=== PATIENT | female | born 1930 | race Caucasian/White ===

== ENCOUNTER 2021-05-03 08:09 | Emergency (ER) | payer OTHER ==
[~2021-05-03] VITALS: Ht 152.4 cm; Wt 70.3 kg
[2021-05-03 09:46] LABS: URINE BILIRUBIN NEGATIVE (Negative); URINE BLOOD NEGATIVE (Negative); URINE CLARITY CLEAR; URINE COLOR YELLOW; URINE GLUCOSE-RANDOM* NEGATIVE (Negative); URINE KETONES NEGATIVE (Negative); URINE NITRITE-REFLEX NEGATIVE (Negative); URINE PROTEIN (DIPSTICK) NEGATIVE (Negative); URINE SPECIFIC GRAVITY 1.025 (1.005-1.035); URINE UROBILINOGEN 0.2 E.U./dl (0.2-1.0)
[2021-05-03 09:47] LABS: ABSOLUTE NEUTROPHILS 9.9 thou/uL (1.4-8.2); BASOPHILS 0.7 % (0.0-2.0); EOSINOPHILS 1.6 % (0.0-3.0); HEMATOCRIT 40.5 % (37.0-47.0); HEMOGLOBIN 13.2 gm/dL (12.0-15.0); LYMPHOCYTES 23.3 % (24.0-44.0); MCH 30.2 pg (26.0-34.0); MCHC 32.7 g/dL (28.0-37.0); MCV 92.5 fL (80.0-100.0); MONOCYTES 7.9 % (1.0-8.0); PLATELET COUNT 357 thou/uL (150-400); POLYS 66.5 % (36.0-66.0); RBC 4.38 mil/uL (4.20-5.00); RDW 13.8 % (10.5-14.5); WBC 14.9 thou/uL (4.0-11.0)
[2021-05-03 09:48] LABS: URINE LEUKOCYTES-REFLEX 2+ (Negative)
[2021-05-03 10:02] LABS: CALCIUM 9.7 mg/dL (8.5-10.1); CREATININE 0.9 mg/dL (0.6-1.0); POTASSIUM 4.8 mmol/L (3.5-5.1)
[2021-05-03 10:15] LABS: SQUAMOUS >10 Many /LPF (0-3)
[2021-05-03 10:16] LABS: AMORPHOUS URATES Few /LPF (None Seen); CASTS None Seen /LPF (None Seen); URINE RBC 1-2 Rare /HPF (NONE SEEN)
[2021-05-03 14:55] VITALS: BP 146/71
[2021-05-03] MEDS ORDERED: ASA81BEC PO (16:00)
[2021-05-03] MEDS ORDERED: CALCIUM500 MG PO (16:01)
[2021-05-03] MEDS ORDERED: CRANBERRY500 M3 PO (16:01)
[2021-05-03] MEDS ORDERED: MAGNESIUM400 M1 PO (16:02)
[2021-05-03] MEDS ORDERED: VITAMIN C500 M1 PO (16:03)
[2021-05-03] MEDS ORDERED: SUPER THERAVIT1 EACH PO (16:03)
[2021-05-03] MEDS ORDERED: VITAMIN D350 MCG PO (16:04)
[2021-05-03] MEDS ORDERED: MIRALAX17 GM PO (16:05)
[2021-05-03] MEDS ORDERED: REFRESH TEARS15 ML OPHTHALMIC (16:05)
[2021-05-03] MEDS ORDERED: ATACAND16 MG PO (16:06)
[2021-05-03] MEDS ORDERED: LEVOXYL88 MCG PO (16:06)
[2021-05-03] MEDS ORDERED: ARICEPT10 M1 PO (16:07)
[2021-05-03] MEDS ORDERED: LIPITOR 40 MG T40 M1 PO (16:07)
[2021-05-03] MEDS ORDERED: CELEXA 20 MG TA20 MG PO (16:08)
[2021-05-03] MEDS ORDERED: LORAZEPAM 0.50.5 MG PO (16:08)
[2021-05-03] MEDS ORDERED: CELEXA 10 MG TA10 M1 PO (16:09)
[2021-05-03] MEDS ORDERED: HALDOL 0.5 MG0.5 MG PO (16:09)
[2021-05-04] MEDS ORDERED: TRAZODONE HCL50 MG PO (08:35)
[2021-05-04] MEDS ORDERED: HALDOL 0.5 MG0.5 MG PO (08:35)
== END 2021-05-03 14:55 ==
LOC: ER 08:09
PROVIDERS: Student in an Organized Health Care Education/Training Program
DX: F03.90 Unspecified dementia, unspecified severity, without behavioral disturbance, psychotic disturbance, mood disturbance, and anxiety (principal); Z20.822 Contact with and (suspected) exposure to COVID-19

== ENCOUNTER 2021-05-03 15:05 | Inpatient (IN) | payer OTHER ==
[~2021-05-03] VITALS: Ht 152.4 cm; Wt 65.3 kg
[2021-05-03] MEDS ORDERED: ASA81BEC PO (16:00)
[2021-05-03] MEDS ORDERED: CALCIUM500 MG PO (16:01)
[2021-05-03] MEDS ORDERED: CRANBERRY500 M3 PO (16:01)
[2021-05-03] MEDS ORDERED: MAGNESIUM400 M1 PO (16:02)
[2021-05-03] MEDS ORDERED: SUPER THERAVIT1 EACH PO (16:03)
[2021-05-03] MEDS ORDERED: VITAMIN C500 M1 PO (16:03)
[2021-05-03] MEDS ORDERED: VITAMIN D350 MCG PO (16:04)
[2021-05-03] MEDS ORDERED: REFRESH TEARS15 ML OPHTHALMIC (16:05)
[2021-05-03] MEDS ORDERED: MIRALAX17 GM PO (16:05)
[2021-05-03] MEDS ORDERED: LEVOXYL88 MCG PO (16:06)
[2021-05-03] MEDS ORDERED: ATACAND16 MG PO (16:06)
[2021-05-03] MEDS ORDERED: LIPITOR 40 MG T40 M1 PO (16:07)
[2021-05-03] MEDS ORDERED: ARICEPT10 M1 PO (16:07)
[2021-05-03] MEDS ORDERED: CELEXA 20 MG TA20 MG PO (16:08)
[2021-05-03] MEDS ORDERED: LORAZEPAM 0.50.5 MG PO (16:08)
[2021-05-03] MEDS ORDERED: CELEXA 10 MG TA10 M1 PO (16:09)
[2021-05-03] MEDS ORDERED: HALDOL 0.5 MG0.5 MG PO (16:09)
--- NOTE | 2021-05-03 17:45 | NUR ---
Arrived unit at 1515 via w/c from ER. DX Dementia with Behavior. Pt was oriented to self. Admit assessments completed, vss. S1, S2 regular, lungs clear, Denies si/hi, c/o pain, tylenol administered as ordered. Active bowel sounds. Had a bowel movement this shift. yeast noted under both breast, belly folds, armpit and panties line.A tiny scratch noted R great toe, picture taken placed in chart. Calm and cooperative with assessments. Ambulates with unsteady gait.pt Prefered w/c with ambulation. Consent to treat signed, Fall contract signed by DPOA. Pt ate dinner. Pt was irritable and agitated. Dr Davis notified. PRN hadol 0.5mg PO was administered. Dr Wang notified in regards to pt yeast. At this time pt is in the day room. Will continue to Monitor.
[2021-05-03 18:22] VITALS: BP 125/60
--- NOTE | 2021-05-04 01:55 | NUR ---
PATIENT RESTING IN CHAIR IN THE COMMON AREA. PT IS AAO TO PERSON ONLY. SHE IS CONFUSED AND NEEDS FREQUENT REDIRECTION. PATIENT HAS DIFFICULTY STAYING IN HER CHAIR. REPEATEDLY CALLS FOR HELP. PATIENT STATES THAT SHE NEEDS TO GO HOME. SHE IS REORIENTED TO PLACE. PATIENT COMPLAINS OF NEEDING TO GO TO THE RESTROOM. SHE WAS ESCORTED TO THE RESTROOM SEVERAL TIMES WITHOUT PRODUCTION. SHE IS PASSING GAS. ABDOMEN IS ROUND AND FIRM. ADMINISTERED PRN MEDICATIONS. PATIENT WOULD NOT STAY IN HER BED TONIGHT SO SHE WAS KEPT IN THE COMMON AREA. VSS. WILL CONTINUE TO MONITOR FOR CHANGES IN STATUS.
[2021-05-04 05:01] LABS: CHOLESTEROL 102 mg/dL (<200); HDL CHOLESTEROL 46 mg/dL (>40); LDL CHOLESTEROL 33 mg/dL (<100); TC:HDL 2.2 Ratio (Not establshd); TRIGLYCERIDE 116 mg/dL (<150); VLDL 23 mg/dL (<40)
[2021-05-04 05:37] LABS: SERUM ASSESSMENT Clear
--- NOTE | 2021-05-04 07:24 | EKG ---
[address] [employer] [place] [address] ELECTROCARDIOGRAM REPORT Name: MCKAY GARCIA Room #: [facility] ADM IN M.R.#: [id number] Admission: 05/03/21 Attend Phys: Tomy Anthony DO Discharge: Date of : [birth year] Report #: [id number] [facility] Test Date: 2021-05-03 Test Time: 18:21:30 Pat Name: MCKAY GARCIA Department: Room: [facility] Gender: F Recruiter Specialist: FSCHWALDARLINE : 1930 Requested By: Carline Davis Order Number: [id number] MD: Elmo Mckeon Measurements Intervals Russell Rate: 81 P: 44 NC: 156 QRS: -22 QRSD: 98 T: 82 QT: 402 QTc: 467 Interpretive Statements Sinus rhythm Borderline left axis deviation Low voltage, precordial leads No previous ECG available for comparison Electronically Signed On 05-04-2021 7:24:12 CDT by Elmo Mckeon [email or web address] <ELECTRONICALLY SIGNED> By: Elmo Mckeon MD, [facility] 05/04/21723 20 20 Elmo Mckeon MD, FACC /EPI
[2021-05-04] MEDS ORDERED: HALDOL 0.5 MG0.5 MG PO (08:35)
[2021-05-04] MEDS ORDERED: TRAZODONE HCL50 MG PO (08:35)
[2021-05-04 10:13] VITALS: BP 143/65
--- NOTE | 2021-05-04 10:17 | NUR ---
Nutrition: pt admit to [facility] unit with dementia/behavioral disturbance. Family had reported dementia dx 3-4 years ago with worsening symptoms. Pt preoccupied with getting out of wheelchair during visit. Confused. [facility] [place] pt ate 100% of breakfast this am, 50% dinner last noc. No weight hx available. BMI 28.9, overweight status. On daily MVI, vitamin C, zinc. RN noted yeast in several areas on body. Follow intakes, place as low nutrition risk.
[2021-05-04 11:35] VITALS: BP 143/65
--- NOTE | 2021-05-04 12:41 | NUR ---
RESUMMED CARE FROM OVERNIGHT SHIFT THIS AM, PATIENT IN ROOM GETTING READY FOR BREAKFAST. PATIENT ATE BREAKFAST TOOK MEDICATION WITHOUT INCIDENCE. PATIENT HAS ASKED TO GO TO THE BATHROOM AT LEAST 6 TIMES THIS AM. PATIENT ALERT TO SELF ONLY SHE KNOWS SHE IS A HOSPITAL BUT DOES NOT REMEMBER THE NAME. PATIENT DENIES SI/HI/AH/VH AT PRESENT, PATIENT CONFUSED HAS SOME ANXIETY NO DEPRESSION. PATIENT CALLED ME AND STATED PATIENT HAS AN OBSESSION FOR GOING TO THE RESTROOM. PATIENTS ABDOMEN SOFT BOWEL SOUNDS PRESENT PATIENTS LUNGS CLEAR. PATIENT PARTICPATED IN GROUPS PT WORKED WITH PATIENT THIS AM AND SAID SHE DOES BETTER WITH A WALKER. PATIENT HAS NOT DISPLAYED ANY BEHAVIORS EXCEPT WANTING TO GO TO THE BATHROOM CONSTANTLY. WILL CONTINUE TO MONITOR PATIENT FOR SAFETY AND BEHAVIORS.
[2021-05-04 13:29] LABS: FOLIC ACID 46.9 ng/mL (8.6-58.9)
--- NOTE | 2021-05-04 18:26 | NUR ---
ESTEVAN and Dr. Miles partipated in a phone call with the Pt's , Chauncey, and daughter, Cynthia. Medications were discussed and treamtment. The family expressed concerns about the Pt's increase in aggitation and sleep. Pt is sleeping in the day and awake at night. Pt also going to the bathroom too frequent. Pt's PCP is True Montague at [facility]. Pt does not currently have any otpt psychiatric services. Pt was dx with dementia by Dr. St. Pt has had memory issues over the past 10 years but a more recent decline in the last 2-3 months. Pt having increase confusion and aggitation. Pt start not recognizing her . Also calling he daughter asking for help because she believed she had been kidnapped. Chauncey is the Pt's cargiver. Chauncey would like the Pt to return to the home. Dr. Miles discussed the Pt's increasing care needs and the ability of Chauncey to continue to care for the Pt in the home. The family was encouraged to discuss care options including placement over the weekend. Estevan will call family on Friday to discuss the matter. There were no other questions or concerns voiced on this call. Estevan will follow up.
[2021-05-04 19:00] VITALS: BP 163/76
[2021-05-05 01:06] LABS: GLYCOHEMOGLOBIN (HGB A1C) 6.4 % (4.8-5.6)
--- NOTE | 2021-05-05 04:33 | NUR ---
PATIENT SITTING IN CHAIR IN COMMON AREA. PATIENT IS AGITATED AND ANXIOUS. HAS TO BE REDIRECTED TO REMAIN IN HER CHAIR SHE IS VERY UNSTEADY N HER FEET. SHE IS AAOX1. DENIES ANY PAIN. SHE DOES TAKE HER MEDICATIONS WITHOUT ISSUE TONIGHT. VITAL SIGNS STABLE. NO DISTRESS NOTED. WAS ABLE TO SLEEP MOST OF THE NIGT TONIGHT.
[2021-05-05 08:55] VITALS: BP 101/45
--- NOTE | 2021-05-05 09:46 | H ---
[facility] [place] [address] HISTORY AND PHYSICAL Name: MCKAY GARCIA Room #: 522B-B ADM IN M.R.#: [id number] Admission: 05/03/21 Attend Phys: Tomy Anthony DO Discharge: Date of : [birth year] Report #: [id number] THIS REPORT FOR: cc: True Mckeon MD,rTue Anthony,Tomy Terrell DO ~ DATE OF SERVICE: 05/04/2021 ATTENDING PSYCHIATRIST: Tomy Anthony DO MEDICAL CONSULTANTS: Kathrin Chaudhari and Joshua Michael MD, and his hospitalist team. REASON FOR ADMISSION: Reversed biorhythm, where she has been up all night for weeks, possible urinary tract infection, cognitive or functional decline in ability for and daughter to care for the patient at this time. SOURCES OF INFORMATION: Brief interview with the patient who is a poor historian, her , Giuliano, and daughter, Leslie. Please note the patient is incapacitated for healthcare and general financial decisions. Her DPOA has been enacted previously and remains enacted. HISTORY OF PRESENT ILLNESS: From available information, an 89-year-old female, and lives with , Giuliano, who is actually older and is her caregiver, roughly 10-year history of dementia, believed to be Alzheimer's disease. This was diagnosed 3-[address] True Mckeon at [facility]. Her notes she seemed to be getting worse. She is agitated, insomnia, has frequent urination. Denies any falls or head injury. She states she urinates every 10 or 15 minutes, but denies any burning or foul smell. States she has been evaluated for UTI in the past, which was negative. The patient otherwise denies any medical complaints at this time. States she is feeling well. ALLERGIES: No known allergies. REVIEW OF SYSTEMS: From the ER: CONSTITUTIONAL: Denies fever, chills, malaise, or unexplained weight change. EYES: Denies eye pain, visual change, or discharge. HENT: Denies hearing changes, ear drainage, ear infections, ear pain, neck pain or neck stiffness. RESPIRATORY: Denies cough, shortness of breath, hemoptysis, or respiratory distress. CARDIOVASCULAR: Denies chest pain, chest pain with exertion, or edema. GASTROINTESTINAL: Denies abdominal pain, nausea, vomiting, or diarrhea. GENITOURINARY: Denies burning, frequency, or dysuria. MUSCULOSKELETAL: Denies back pain, joint pain, muscle weakness, or myalgias. [address] [address] HISTORY AND PHYSICAL Name: MCKAY GARCIA Room #: [facility] IN M.R.#: [id number] Admission: 05/03/21 Attend Phys: Tomy Anthony DO Discharge: Date of : [birth year] Report #: [id number] SKIN: Denies rash. NEUROLOGIC: Denies headache or loss of consciousness. Otherwise, 10-point review of systems negative. Weight 67.16 kg, BMI of 28.9. General exam: Some tremor in her hands. LABORATORY DATA: Hematology: White count high at 14.9, H and H 13.2 and 40.5, platelet count 357. Segmented neutrophil percentage increased at 66.5. MCV elevated at 92.5. Sodium 138, potassium 4.8, chloride 103, bicarbonate 28, anion gap 7, BUN 34, creatinine 0.9, estimated GFR 59, glucose 111, calcium 9.7, triglycerides 116, cholesterol 102, HDL 46. B12 is 495. Folate 46.9. TSH 1.646. Urinalysis showed 2+ leukocyte esterase, 16-25 leukocytes, greater than 10 squamous epithelial cells, few amorphous urates, urine bacteria 10-30, moderate. Urine microbiology revealed three or more organisms isolated, results consistent with colonization or contamination during the collection process. HOME MEDICATIONS: From the ER list, aspirin 81 mg oral daily, calcium 600 mg oral daily, cranberry extract 500 mg oral daily, magnesium 4 mg oral daily, multivitamin daily, vitamin C 500 mg daily, vitamin D3 2000 international units oral daily, MiraLax 1/4 teaspoon daily at bedtime, Refresh Tears, , levothyroxine 88 mcg daily, candesartan 16 mg daily, atorvastatin 40 mg oral daily; donepezil 10 mg, held; lorazepam 0.5 mg, held; citalopram 20 mg, held; Haldol 0.5 mg 1 in the afternoon. CURRENT MEDICATIONS IN THE HOSPITAL: Trazodone was increased to 125 mg at bedtime scheduled for sleep, MiraLax 17 grams in 8 ounces of water at bedtime for bowel motility, Haldol increased to 2 mg three times a day for psychosis, lorazepam 0.5 q. 12 hours p.r.n. for acute anxiety, Haldol p.r.n. is 4 mg IM q. 6 hours, multivitamin oral daily, magnesium oxide 400 mg oral daily, levothyroxine 88 mcg oral daily, ergocalciferol 2000 international units daily, calcium carbonate 500 mg oral daily, aspirin 81 mg oral daily, vitamin C 500 mg p.o. daily; nystatin 1 gram t.i.d., topical; losartan 50 mg oral at bedtime. No other meds. PHYSICAL EXAMINATION: VITAL SIGNS: Today, temperature 36.8, pulse 85, respirations 18, BP 182/65, O2 sat 93%. MUSCULOSKELETAL: Not able to ambulate safely with good balance on her own. GENERAL: Well-developed, ill-appearing female, tremulous in the hands in the hands. NEUROLOGIC: Attention limited. Concentration limited. Speech is soft, normal [facility] [address] [place] [address] HISTORY AND PHYSICAL Name: MCKAY GARCIA Room #: 522B-B ADM IN [facility].#: [id number] Admission: 05/03/21 Attend Phys: Tomy Anthony DO Discharge: Date of : [birth year] Report #: [id number] rate. Thought process: Linear and goal directed. Thought content: Making statements about her past things she used to do, things that did make sense. She is only oriented to herself. Denied suicidal or homicidal ideation, or auditory, visual, or tactile hallucinations. Insight and judgment impaired. Fund of knowledge diminished. FORMULATION: An 89-year-old female, brought in by family for a longstanding, but now rapidly progressing Alzheimer dementia situation. DIAGNOSES: At this time, major neurocognitive disorder, likely due to Alzheimer's disease with behavioral disturbance, advanced. Other morbidities include constipation, EKG done, sinus rhythm, QTc 467, urinary frequency; hypertension; hypothyroidism; history of coronary artery disease, status post stent placed in . PLAN: The patient is admitted via DPOA to [facility] at [facility]. Evaluate, stabilize, obtain collateral. As stated, I have increased her Haldol burden to 2 mg oral 3 times a day as scheduled. We will give that by IM backup if the patient refuses. I would like to see how she does over the weekend. We had a telephonic discussion with the patient's and daughter, explained by now they need to decide on whether they are going to take her home or go for facility placement. Time spent on this case, greater than 60 minutes, greater than 50% of the time spent in review of records and coordination of care. strengths: supportive family, weaknesses: advanced age, alzheimers disease <ELECTRONICALLY SIGNED> By: Tomy Anthony DO 05/05/21 0946 1540 [id number] Tomy Anthony DO /nt
[2021-05-05 12:24] VITALS: BP 101/45
--- NOTE | 2021-05-05 14:15 | NUR ---
RESUMMED CARE FROM OVERNIGHT SHIFT THIS AM, PATIENT IN DAY ROOM SITTING AT TABLE TALKING WITH ANOTHER PATIENT. PATIENT ATE BREAKFAST TOOK MEDICATION BUT REFUSED HER CYMBALTA. SHE STATES SHE SHOULD BE ONE ZOLOFT THE [employer]US[employer] LANGUAGE PROFESSOR ELIZABETH TALKED WITH PATIENT ABOUT CHANGING HER MEDICATION. PATIENT ALERT ORIENTED TIMES 4 PATIENT DENIES SI/HI/AH/VH AT PRESENT. PATIENT STATES SHE ONLY HAD ONE NIGHT TERROR LAST NIGHT AND THE PRAZOSIN IS HELPING. PATIENT PARTICPATED IN GROUPS PATIENT HAS NOT DISPLAYED ANY BEHAVIORS. WILL CONTINUE TO MONITOR PATIENT FOR SAFETY AND BEHAVIORS.
[2021-05-05 20:05] VITALS: BP 126/83
--- NOTE | 2021-05-05 21:26 | NUR ---
PATIENT RESTING IN CHAIR AT TABLE IN COMMON AREA. SHE IS AAOX2 TONIGHT. PATIENT IS CALM AND IS FOLLOWING DIRECTIONS. STATES THAT SHE FEELS GOOD TONIGHT. PATIENT HAS HAD 3 BM'S TODAY. SHE COMPLIES WITH HER MEDICATIONS WITHOUT PROMPTING. DENIES PAIN OR NEEDS. FALL PRECAUTIONS IN PLACE. NO S/S OF DISTRESS NOTED. WILL CONTINUE TO MONITOR FOR CHANGES IN PATIENT STATUS.
[2021-05-06 06:35] VITALS: BP 138/59
--- NOTE | 2021-05-06 18:01 | NUR ---
DID HAVE SOME MILD AGITATION STARTING AROUND [id number] THIS AM SITTING QUIETLY IN DAYROOM-ATE BREAKFAST AND TOOK AM MEDS WITHOUT REISSTANCE-AT APPROX 32171 NOTED TO DEBO RESTLESS-ATTEMPTING TO GET UP MULTIPLE TIMES ON OWN STATING NEEDED TO UDE RESTROOM-TAKEN TO BR AND DID HAVE LARGE BM AND VOIDED APPROX 450 CC CLEAR YELLOW URINE-TAKEN 2 MORE TIMES AFTER THIS PER HER REQUEST BUTNO ADDITIONAL RESULTS WITH BOWEL ORBLADDER-BEGINS TO YELL AT ASTAFF AND STARTS TO WALK ON OWN TO BR DESPITE VERY UNSTEADY GAIT.ATIVAN 0.5MG GIVEN PO PRN AT APPROX 1030-DOES APPEAR MUCH MORE DIRECTABLE AFTER PRN-NOT ATTEMPTINGTO GET UP ON OWN
[2021-05-06 19:54] VITALS: BP 140/67
--- NOTE | 2021-05-07 00:09 | NUR ---
Assumed care on 05/06/21 @ 1900, seated in the day room, A&Ox1 to person only, HRRR, Lung sounds Clear to auscultation bilat, ABD sounds normoactive, abdomen soft and round. States that she does not need to be in a hospital, this is not the place for her. Denies WILLIS/HV. Takes meds crushed in pudding. Retired to bed at , Bed in low position, bed alarm set, will continue to monitor for safety and comfort.
[2021-05-07 09:35] VITALS: BP 138/54
[2021-05-07 10:03] VITALS: BP 138/54
[2021-05-07 12:14] LABS: URINE BILIRUBIN NEGATIVE (Negative); URINE BLOOD TRACE (Negative); URINE CLARITY CLEAR; URINE COLOR YELLOW; URINE GLUCOSE-RANDOM* NEGATIVE (Negative); URINE KETONES NEGATIVE (Negative); URINE NITRITE-REFLEX NEGATIVE (Negative); URINE PROTEIN (DIPSTICK) NEGATIVE (Negative); URINE SPECIFIC GRAVITY 1.015 (1.005-1.035); URINE UROBILINOGEN 0.2 E.U./dl (0.2-1.0)
[2021-05-07 12:36] LABS: URINE LEUKOCYTES-REFLEX 1+ (Negative)
--- NOTE | 2021-05-07 13:02 | NUR ---
RESUMMED CARE FROM OVERNIGHT SHIFT THIS AM, PATIENT SITTING IN DAY ROOM QUIET. PATIENT ATE BREAKFAST WITH ASSISTANCE TOOK MEDICATIONS CRUSHED IN OATMEAL. PATIENT ALERT TO SELF ONLY CALM COOPERATIVE; UNABLE TO TELL ME ABOUT SI/HI/AH/VH DUE TO COGNITIVE DISORDER. PATIENTS ABDOMEN SOFT BOWEL SOUNDS PRESENT. PATIENTS LUNGS CLEAR I DID A STRAIGHT CATH FOR A UA/UC FOR ANALYSIS. PATIENT HAS NOT DISPLAYED ANY BEHAVIORS WILL CONTINUE TO MONITOR PATIENT FOR SAFETY AND BEHAVIORS.
[2021-05-07 13:10] LABS: CASTS None Seen /LPF (None Seen); SQUAMOUS 4-10 Moderate /LPF (0-3)
[2021-05-07 13:11] LABS: BACTERIA-REFLEX 1-9 Few /HPF (None Seen); CRYSTALS None Seen /LPF (None Seen); URINE RBC 1-2 Rare /HPF (NONE SEEN); URINE WBC-REFLEX 0-5 Rare /HPF (0-5)
--- NOTE | 2021-05-07 17:12 | NUR ---
ESTEVAN contacted Chauncey. Chauncey asked ESTEVAN to call his daughter Leslie. ESTEVAN called Leslie concerning decision about placement. Leslie informed the family decided to pursue placement. Pt has [place] [facility] care insurance to pay for a placement. ESTEVAN asked that the family provide 3-5 facilities they would like a referra sent to . ESTEVAN directed the family to medicare.gov and [employer] to search for nursing homes in the area of choice. ESTEVAN will continue to follow up.
[2021-05-07 20:00] VITALS: BP 159/68
[2021-05-07 20:20] VITALS: BP 159/68
--- NOTE | 2021-05-07 23:22 | NUR ---
AT ONSET OF SHIFT PT WAS RESTING IN RECLINING CHAIR IN DAY ROOM. THIS SHIFT PT WAS LETHARGIC WITH CONSTRICTED AFFECT. PT ATE 100% OF EVENING SNACK. COMPLIANT WITH MEDICATIONS AND VITAL SIGNS. PT WAS ORIENTED TO SELF. PT STATED SHE BELIEVED SHE WAS AT A REHAB FACILITY. PT STATED SHE HAD A CONFLICT WITH A COWORKER TODAY AND THIS UPSET HER. PT WAS MOSTLY CALM, BUT APPEARED ANXIOUS WHEN SHE NEEDED SOMETHING. PT DID NOT MAKE ANY ATTEMPTS TO GET OUT OF HER CHAIR HERSELF. THIS IS AN IMPROVEMENT SINCE RN SAW PT LAST. NO SIGNS OF SI/HI/AVH. PT NOT ABLE TO ENGAGE IN MEANINFUL CONVERSATION. FALL PRECAUTIONS IN PLACE.
[2021-05-08 09:07] VITALS: BP 121/44
--- NOTE | 2021-05-08 09:54 | NUR ---
Sleeping in recliner without s/o distress. Awakens easily. Calm and compliant with meds, took crushed in apple sauce. Orientated to self, denies SI/HI. Breath sounds clear. Reg HR auscultated. Color pink with brisk capillary refill and palpable peripheral pulses. Brief dry. Active bowel sounds over soft, rounded abdomen. Area beneath breast with slight erythema, cleaned and dried, nystatin power applied. Sleeping in recliner during group.
--- NOTE | 2021-05-08 17:21 | NUR ---
ESTEVAN recieved a phone call from Leslie requesting referrals be sent to the following: [facility]. ESTEVAN was able to send referrals
[2021-05-08 19:03] VITALS: BP 149/61
[2021-05-09] VITALS: BP 149/61
[2021-05-09 09:03] VITALS: BP 133/66
--- NOTE | 2021-05-09 11:39 | NUR ---
PATIENT WAS UP IN DAYROOM SITTING IN [facility] WHEN CARE ASSUMED. PATIENT IS ALERT, AND ORIENTED X 1, SHE IS FORGETFUL, CONFUSED, UNABLE TO RESPOND APPROPRIATELY TO ASSESSMENT QUESTIONS DUE TO COGNITIVE IMPAIRMENT. PATIENT TOOK ALL MORNING MEDICATION CRUSHED IN YOGURT, WELL TOLERATED. PATIENT ASSISTED BY STAFF WITH BREAKFAST. STAFF ALSO GAVE HER A SHOWER, WELL TOLERATED. NO AGITATION OR AGGRESSIVE BEHAVIOR NOTED. AFFECT IS FLAT, MOOD IS CALM. LCTA, RESPIRATION EVEN/UNLABORED, NO SOA/CYANONIS NOTED. NO SIGN OF ACUTE DISTRESS NOTED AT THIS TIME, WILL MONITOR FOR SAFETY.
--- NOTE | 2021-05-09 16:57 | NUR ---
Pt was declined by: Ciro Zaragoza would like to complete a zoom assessment with the Pt. It has been scheduled for 05/10/2021 @ 1240. [facility] has accepted the Pt.
[2021-05-09 19:35] VITALS: BP 108/85
--- NOTE | 2021-05-10 05:53 | NUR ---
PATIENT RESTING IN THE DOROTEO CHAOR AT TABLE IN COMMON AREA. PATIENT IS AAOX1. PATIENT ONLY KNOWS HER NAME. CAN NOT RECALL WHERE SHE IS AT OR WHAT HER BIRTHDAY IS. PATIENT STATED YES WHEN ASKED IF SHE WAS AT THE [facility]. PATIENT APPEARS TO HAVE SOME ANXIETY BUT IS COOPERATIVE AND FOLLOWING COMMANDS. PATIENT STATES THAT SHE FEELS ALL ALONE. STAFF TALKED WITH HER FOR A BIT. SHE DID SLEEP WELL TONIGHT. DENIES PAIN OR NEEDS. NO SS OF DISTRESS. WILL CONTINEUE TO MONITOR FOR CHANGES IN STATUS.
--- NOTE | 2021-05-10 08:54 | NUR ---
Nutrition follow up: Pt noted calmer and less anxious lastfew days. Remains confused A/O to self only. Staff assists with meals. Intakes at meals are variable, avg 50-76% across all meals, but she does accept snacks throughout the day as well. BMI 9/. Family seeking placement d/t increased care needs and advancement of dementia causing increased care needs and increased confusion/memory issues. Remains low nutrition risk.
[2021-05-10 09:16] VITALS: BP 114/52
[2021-05-10 09:17] VITALS: BP 114/52
--- NOTE | 2021-05-10 12:06 | NUR ---
Pt completed an assessment Michelle Pascual at [facility]. Michelle requested OT and PT notes. ESTEVAN did fax the requested information. Michelle informed she would call ESTEVAN concerning admission after reviewing information. ESETVAN will continue to follow.
--- NOTE | 2021-05-10 12:12 | NUR ---
RT Progress Note- Amara has been present in the day room throughout each day since her admission, though she has remained a passive participant in groups. amara often sleeps through groups, or does not actively engage r/t cognitive impairment. During the first few days of her admission she was fairly impulsive and restless, but this has subsided and she is able to remain seated throughout group times. EQUAL OPPORTUNITY REPRESENTATIVE will encourage participation throughout her stay.
--- NOTE | 2021-05-10 12:17 | NUR ---
Alert and orientated to name only. Denies SI/HI. More alert today and with few verbalizations. Sitting in recliner. Able to stand and take several steps with assistance. Breath sounds clear. Reg HR auscultated. Color pink with brisk capillary refill and palpable peripheral pulses. No edema noted. Continent of large amt yellow urine and medium soft, brown stool per commode. Also incontinent of yellow urine in brief. Active bowel sounds over soft, rounded abdomen. Slight erythema and excoriation beneath breasts and in inguinal folds, cleaned and nystatin powder applied. Much more independent in eating today. Currently eating in room.
--- NOTE | 2021-05-10 13:58 | NUR ---
05-10-2021--13:30--Attempted to wake patient to participate in group. She did not wake up.
--- NOTE | 2021-05-10 17:09 | NUR ---
ESTEVAN spoke with Cynthia concerning which facility the family wants to place the Pt. Cynthia informed they would like to go with [facility] [place] because it was closer to the Pt's . Cynthia requested transportation be set up for the Pt at discharge. There were no other questionss or concerns during this call. ESTEVAN was able to speak with admissions at [facility]. They are still able to accept the Pt. Discharge was set for 05/14/2021 @ 1030. Pt will be transported via [employer]. Tracking number [id number].
[2021-05-10 19:33] VITALS: BP 143/80
[2021-05-10 19:50] VITALS: BP 143/80
--- NOTE | 2021-05-11 00:10 | NUR ---
PATIENT IS ALERT AND SHE IS SITTING ON RECLINER. LUNGS ARE CLEAR ABLE TO VERBALIZE SOME NEED. SHE DENIES PAINS/SI/AVH/HI. [id number] CHECK IS ONGOING. SHE IS INCONTINENT OF BOWEL AND BLADDER. CONT CARE
--- NOTE | 2021-05-11 01:30 | NUR ---
RN ASSUMED CARE AT 0015. PT SLEEPING. WILL CONTINUE TO MONITOR.
[2021-05-11 08:28] VITALS: BP 118/58
[2021-05-11 11:44] VITALS: BP 118/58
--- NOTE | 2021-05-11 13:42 | NUR ---
RESUMMED CARE FROM OVERNIGHT SHIFT THIS AM, PATIENT IN DAY ROOM SITTING QUIET. PATIENT ALERT TO SELF AND PLACE SHE ATE BREAKFAST TOOK MEDICATION CRUSHED IN YOGART. PATIENT DENIES SI/HI/AH/VH AT PRESENT PATIENTS ABDOMEN SOFT BOWEL SOUNDS PRESENT. PATIENTS LUNGS CLEAR PATIENT CALM COOPERATIVE HAS NOT DISPLAYED ANY BEHAVIORS. PATIENT DID WALK A FEW STEPS WITH PT WILL CONTINUE TO MONITOR PATIENT FOR SAFETY AND BEHAVIORS.
--- NOTE | 2021-05-11 13:51 | NUR ---
05-11-2021--GROUP--Patient attended group this date but only listened and did not join oin or try to participate in the group.
[2021-05-11 19:47] VITALS: BP 115/45
[2021-05-11 23:32] VITALS: BP 115/45
--- NOTE | 2021-05-12 02:44 | NUR ---
05/11/21 - pt is resting in bed, pleasant, conversed with this nurse, took medications crushed in pudding, miralax in apple juice, eye drops, Alert to self, follows commands. Denies SI/HI/AH/VH. will continue to monitor.
[2021-05-12 09:56] VITALS: BP 143/49
[2021-05-12 10:49] VITALS: BP 143/99
--- NOTE | 2021-05-12 13:05 | NUR ---
RESUMMED CARE FROM OVERNIGHT SHIFT THIS AM, PATIENT SITTING IN THE DAY ROOM QUIET. PATIENT ATE BREAKFAST TOOK MEDICATION CRUSHED IN APPLESAUCE WITHOUT INCIDENCE. PATIENT DENIES SI/HI/AH/VH AT PRESENT PATIENTS ABDOMEN SOFT BOWEL SOUNDS PRESENT. PATIENTS LUNGS CLEAR PATIENT WAS GIVEN A SHOWER THIS AM HAIR WASHED AND COMBED. PATIENT HAS NOT DISPLAYED ANY BEHAVIORS WILL CONTINUE TO MONITOR PATIENT FOR SAFETY AND BEHAVIORS.
[2021-05-12 19:53] VITALS: BP 166/74
[2021-05-12 23:43] VITALS: BP 166/74
--- NOTE | 2021-05-13 02:12 | NUR ---
05/12/21- Pt was in bed with eyes closed, she did wake up for the nurse, she took her medication crushed in pudding, miralax with apple juice and eye drops, Pt is alert to self, very pleasant. denies SI/HI/AH/VH. Will Continue to monitor this shift.
[2021-05-13 09:35] VITALS: BP 125/67
--- NOTE | 2021-05-13 12:26 | NUR ---
Updates faxed to [facility]
--- NOTE | 2021-05-13 16:10 | NUR ---
Assumed pt care at 0700. pt was alert and oriented to person. Assessments completed, vss. Lungs clear, active bowel sound. Calm and cooperative with care. Denies si/hi, denies pain. Took meds crushed in pudding, no difficulty noted. Ambulates with a Keren chair. Incontinent x2 with bladder. Continent x1 with bladder. pt is a fall risk. Fall precaution in place. At this time pt is in the day room. Will continue to monitor.
[2021-05-13 19:24] VITALS: BP 137/69
[2021-05-13 19:50] VITALS: BP 137/69
--- NOTE | 2021-05-14 03:01 | NUR ---
[facility] WAS RESUNED AT 19. SHE WAS SITTING IN THE DINING AREA. SHE DENIES PAINS. LUNGS ARE CLEAR BS ACTIVE X4 QUAD.SHE IS INCONTINENT OF BOWEL AND BLADDER. YELLOEW TOP AND SOCKS ON. MEDS WERE CRUSHED IN APPLE SAUCE. SHE DENIES SI/AVH/HI. MAX ASSIST WITH CARE AND TRANSFER. [facility] PROVIDED.
[2021-05-14] MEDS ORDERED: COZAAR 50 MG TA50 M1 PO (08:29)
[2021-05-14] MEDS ORDERED: TRAZODONE HCL50 MG PO (08:30)
[2021-05-14] MEDS ORDERED: HALOPERIDOL 1 MG1 MG PO (08:30)
[2021-05-14] MEDS ORDERED: CALTRATE-600 W1 EACH PO (08:31)
[2021-05-14] MEDS ORDERED: MIRALAX17 GM PO (08:32)
[2021-05-14] MEDS ORDERED: LEVOTHYROXINE88 MCG PO (08:32)
[2021-05-14] MEDS ORDERED: VITAMIN D325 MC2 PO (08:33)
[2021-05-14 09:02] VITALS: BP 137/67
--- NOTE | 2021-05-14 11:09 | NUR ---
Assumed pt care at 0700. Pt was alert and oriented to self. Assessments completed, vss. Lung clear, active bowel sound. Denies si/hi, denies pain. Took meds crushed with pudding, no difficulty noted. Ambulates with a Keren chair. Calm, cooperative with care and assessments. Incontinent of bowel and bladder. 1106 pt was D/C via w/c to ENTRANCE EXIT. Pt left with her belongings, and D/C instrutions. [id number] Report was called to Micki at [facility].
--- NOTE | 2021-05-15 20:48 | D ---
[facility] [place] [address] DISCHARGE SUMMARY Name: MCKAY GARCIA Room #: 522B-B DIS IN M.R.#: [id number] Admission: 05/03/21 Attend Phys: Tomy Anthony DO Discharge: 05/14/21 Date of : [birth year] Report #: [id number] THIS REPORT FOR: cc: True Mckeon MD,True Anthony,Tomy Terrell DO ~ DATE OF SERVICE: 05/14/2021 INPATIENT PSYCHIATRIC DISCHARGE SUMMARY ATTENDING PSYCHIATRIST: Tomy Anthony DO BINDERY ASSISTANT: Darron Ch M.D. DISCHARGE DIAGNOSES: Major neurocognitive disorder, likely due to Alzheimer's disease with behavioral disturbance, improved. MEDICAL COMORBIDITIES: Urgency, pyuria, hypertension, hypothyroidism, coronary artery disease. The patient is being discharged to [facility]. The patient is standby assist with walker, finger foods with regular diet. Activity level as tolerated. No code. DISCHARGE MEDICATIONS: Aspirin 81 mg a day for heart protection, magnesium oxide 400 mg oral daily for supplementation, multivitamin oral daily for supplementation, vitamin C 500 mg oral daily for supplementation, Refresh Tears 15 mL ophthalmic twice daily for eye irritation, Cozaar 50 mg oral daily for hypertension, trazodone 75 mg oral at bedtime for sleep, p.r.n., Haldol 1.5 mg oral twice daily for psychosis and mood stabilization. Calcium with vitamin D3 500 mg oral daily for supplementation, MiraLax 15 grams oral daily at bedtime, levothyroxine 88 mcg oral daily for supplementation, vitamin D3 25 mcg, which is 2000 International Units oral daily. LABORATORY DATA: Significant laboratories this admission: Hematology: White count initially 14.9, H and H 13.2 and 40.5, platelet count 357. Chemistry: Sodium 138, potassium 4.8, chloride 103, bicarbonate 28, anion gap 7, BUN 34, creatinine 0.9, estimated GFR 59, glucose 111. A1c 6.4, calcium 9.7, triglycerides 116, cholesterol 102, LDL 33, HDL 46, B12 495, TSH 1.646. Urinalysis showed trace blood, 1+ leukocyte esterase, 4-10 squamous cells, few bacteria. Urine culture showed no growth on 05/08/2021. COVID PCR serology was negative on 05/06/2021, 05/09/2021 and 05/13/2021. REASON FOR ADMISSION: Back on 05/03/2021, an 89-year-old female, and lives with her , Giuliano, with 10-year history of dementia, believed to be due to Alzheimer's disease. The patient has declining mentation, [address] [address] DISCHARGE SUMMARY Name: MCKAY GARCIA Room #: 522B-B [facility] IN M.R.#: [id number] Admission: 05/03/21 Attend Phys: Tomy Anthony DO Discharge: 05/14/21 Date of : [birth year] Report #: [id number] agitated, insomnia, frequent urination, inability to care for herself, concern for urinary tract infection. HOSPITAL COURSE: The patient was admitted to Geriatric Psychiatry Unit and she was titrated to a dose of 2 mg twice a day of Haldol then last few days of stay decreased slightly to 1.5 mg po BID. The patient's behavior improved. She never had much to say, she was not self harmful or harmful to others. I recommended a memory care placement, the family agreed. Things unfortunately have been declined to that point. PHYSICAL EXAMINATION: VITAL SIGNS: Temperature 36.4, pulse 71, respirations 18, BP 137/67, O2 sat 95%. MUSCULOSKELETAL: Gait not tested, in Keren chair. MENTAL STATUS EXAMINATION: This is a well-developed, ill-appearing female, appearing stated age. Attention and concentration limited. Speech soft, normal rate. mood/affect constrcited congruent Thought process: Linear and limited. Thought content: Poverty of thought. Denied SI, HI, auditory or visual type hallucinations. Memory known to be impaired. Insight and judgment impaired. Fund of knowledge is below average. Prognosis for this patient is guarded given age of 89 and having neurodegenerative disorder. <ELECTRONICALLY SIGNED> By: Tomy Anthony DO 05/15/218 1531 06 Tomy Anthony DO /nt
== END 2021-05-14 11:06 | DRG 57 ==
LOC: SBH 15:05
PROVIDERS: ADMIT Psychiatry & Neurology Psychiatry; ATTEND Psychiatry & Neurology Psychiatry
DX: G30.9 Alzheimer's disease, unspecified (principal); F02.81 Dementia in other diseases classified elsewhere, unspecified severity, with behavioral disturbance; F01.51 Vascular dementia, unspecified severity, with behavioral disturbance; R35.0 Frequency of micturition; I10 Essential (primary) hypertension; E03.9 Hypothyroidism, unspecified; I25.10 Atherosclerotic heart disease of native coronary artery without angina pectoris; R39.15 Urgency of urination; Z20.822 Contact with and (suspected) exposure to COVID-19; Z90.710 Acquired absence of both cervix and uterus; Z90.49 Acquired absence of other specified parts of digestive tract; Z95.5 Presence of coronary angioplasty implant and graft; Z98.49 Cataract extraction status, unspecified eye; Z79.82 Long term (current) use of aspirin; Z79.899 Other long term (current) drug therapy
CPT/HCPCS: 10880